=== PATIENT | female | born 1960 | race Caucasian/White ===

== ENCOUNTER 2016-06-26 11:03 | Outpatient (CLI) | payer OTHER ==
[2016-06-26 12:43] LABS: #Basophils 0.1 thou/uL (0.0-0.2); #Eosinphils 0.3 thou/uL (0.0-0.7); #Lymphocytes 3.8 thou/uL (1.20-3.40); #Monocytes 0.5 thou/uL (0.11-0.59); #Neutrophils 5.5 thou/uL (1.40-6.50); %Basophils 1.3 % (0.0-1.0); %Monocytes 5.2 % (0.0-10.0); Hematocrit 44.4 % (36.0-47.0); Mean Platelet Volume 6.1 fL (7.4-10.4); White Blood Cell (WBC) Count 10.3 thou/uL (4.8-10.8)
[2016-06-26 13:04] LABS: ALT (SGPT) 20 U/L (0-55); AST (SGOT) 23 U/L (5-34); Alkaline Phosphatase 99 U/L (40-150); Anion Gap 12 mmol/L (10-20); BUN (Urea Nitrogen) 13 mg/dL (9.8-20.1); Bilirubin, Total 0.5 mg/dL (0.2-1.2); Calc. Creatinine Clearance 0 mL/min (70-130); Calcium 9.4 mg/dL (7.8-10.44); Carbon Dioxide 25 mmol/L (22-29); Chloride 107 mmol/L (98-107); Estimated GFR-MDRD 76; LDL Cholesterol, Calculated 93 mg/dL; Protein, Total 7.2 g/dL (6.0-8.3)
[2016-06-26 13:44] LABS: Bilirubin Negative (Negative); Blood, Urine Negative (Negative); Glucose, Urine (Dipstick) Negative (Negative); Ketone, Urine Trace mg/dL (Negative); Nitrite Negative (Negative); Protein, Urine (Dipstick) Trace mg/dL (Neg-Trace); Urobilinogen 0.2 mg/dL (0.2-1.0)
== END 2016-06-26 11:04 | disposition home or self-care (01) ==
LOC: NAVSJIPCSP 11:03
PROVIDERS: ATTEND Internal Medicine
DX: Z00.00 Encounter for general adult medical examination without abnormal findings (principal)
CPT/HCPCS: 36415; 80053; 80061; 81003; 85025

== ENCOUNTER 2016-06-28 12:51 | Outpatient (CLI) | payer OTHER | END 2016-06-28 12:52 | disposition home or self-care (01) | LOC: NAV LABSP 12:51 | PROVIDERS: ATTEND Internal Medicine | DX: Z00.00 Encounter for general adult medical examination without abnormal findings (principal) | CPT/HCPCS: 82270 ==

== ENCOUNTER 2016-12-26 11:12 | Outpatient (CLI) | payer OTHER ==
--- NOTE | 2016-12-27 07:32 | RAD ---
PA AND LATERAL CHEST: HISTORY: Cough. History of being a smoker. COMPARISON: None. FINDINGS: Heart size is within normal limits. There are radiographic changes of COPD. There are areas of par enchymal change, 1 in the right upper lobe and 1 in the left infrahilar region. The left infrahilar area has a slightly nodular appearance, but on the lateral view may represent some more linear juárez ge, possibly some lingular infiltrate. There is also some linear change extending from the left hil um, probably scar. IMPRESSION: Chronic lung changes with radiographic changes of chronic obstructive pulmonary disease. There are some areas that are potentially acute in nature, 1 area in the right upper lobe and 1 in the left in frahilar region. It is possible that this represents some minimal patchy areas of pneumonitis. Inf rahilar area could potentially represent a nodule but is not definitive. Given that the patient has some acute symptoms with cough, I would recommend a short-term followup after appropriate therapy. If this density does not resolve, then consideration for CT. CODE T POS: [facility]
== END 2016-12-26 11:13 | disposition home or self-care (01) ==
LOC: NAV RAD 11:12
DX: R05 Cough (principal); R50.9 Fever, unspecified; J44.9 Chronic obstructive pulmonary disease, unspecified
CPT/HCPCS: 71020

== ENCOUNTER 2017-01-07 15:10 | Outpatient (CLI) | payer OTHER ==
--- NOTE | 2017-01-07 16:49 | RAD ---
RIGHT HIP TWO VIEWS: History: 8 months of pain. Comparison: None. FINDINGS: Moderate loss of the medial inferior joint space height. Contour of the femoral head is maintained. No fracture. IMPRESSION: Mild degenerative changes of the medial inferior joint space. POS: [facility]
== END 2017-01-07 15:11 | disposition home or self-care (01) ==
LOC: NAV RAD 15:10
PROVIDERS: ATTEND Internal Medicine
DX: M25.551 Pain in right hip (principal); M24.9 Joint derangement, unspecified

== ENCOUNTER 2017-01-23 10:04 | Outpatient (CLI) | payer OTHER ==
[2017-01-23 12:37] LABS: #Basophils 0.1 thou/uL (0.0-0.2); #Eosinphils 0.6 thou/uL (0.0-0.7); #Lymphocytes 2.4 thou/uL (1.20-3.40); #Monocytes 0.4 thou/uL (0.11-0.59); #Neutrophils 6.5 thou/uL (1.40-6.50); %Eosinophils 5.7 % (0.0-10.0); %Monocytes 4.2 % (0.0-10.0); %Neutrophils 65.1 % (42.0-75.0); Hemoglobin 13.2 g/dL (12.0-16.0); Mean Corpuscular Hemoglobin 28.6 pg (27.0-31.0); Mean Corpuscular Volume 92.1 fl (81.0-99.0); Mean Platelet Volume 6.2 fL (7.4-10.4); Platelet Count 560 thou/uL (130-400); RBC Distribution Width 14.1 % (11.5-14.5); Red Blood Cell (RBC) Count 4.62 mill/uL (4.20-5.40)
[2017-01-23 12:56] LABS: ALT (SGPT) 13 U/L (8-55); AST (SGOT) 20 U/L (5-34); Alkaline Phosphatase 88 U/L (40-150); Anion Gap 14 mmol/L (10-20); BUN (Urea Nitrogen) 17 mg/dL (9.8-20.1); Bilirubin, Total 0.3 mg/dL (0.2-1.2); Calc. Creatinine Clearance 0 mL/min (70-130); Calcium 9.3 mg/dL (7.8-10.44); Carbon Dioxide 27 mmol/L (22-29); Chloride 105 mmol/L (98-107); Estimated GFR-MDRD 77; Globulin 2.3 g/dL (2.4-3.5); Glucose 100 mg/dL (70-105); Potassium 4.7 mmol/L (3.5-5.1); Protein, Total 6.3 g/dL (6.0-8.3); Sodium 141 mmol/L (136-145)
== END 2017-01-23 10:05 | disposition home or self-care (01) ==
LOC: NAVSJIPCSP 10:04
DX: I11.9 Hypertensive heart disease without heart failure (principal)
CPT/HCPCS: 36415; 80053; 85025

== ENCOUNTER 2017-01-24 10:49 | Outpatient (CLI) | payer OTHER ==
--- NOTE | 2017-01-24 11:59 | RAD ---
1234 PA AND LATERAL VIEWS CHEST: HISTORY: Pneumonia. FINDINGS: Comparison is made with the exam of 12/26/16. The heart size is normal. The lungs are expanded without confluent areas of consolidation, pneumoth orax, or pleural effusions. IMPRESSION: No radiographic evidence of acute cardiopulmonary process. POS: [facility]
== END 2017-01-24 10:50 | disposition home or self-care (01) ==
LOC: NAV RAD 10:49
DX: J18.9 Pneumonia, unspecified organism (principal)
CPT/HCPCS: 71020

== ENCOUNTER 2017-02-28 10:32 | Outpatient (CLI) | payer OTHER ==
[2017-02-28 12:22] LABS: #Basophils 0.1 thou/uL (0.0-0.2); #Eosinphils 0.5 thou/uL (0.0-0.7); #Lymphocytes 3.6 thou/uL (1.20-3.40); #Monocytes 0.6 thou/uL (0.11-0.59); #Neutrophils 5.3 thou/uL (1.40-6.50); %Basophils 1.1 % (0.0-1.0); %Eosinophils 4.7 % (0.0-10.0); %Lymphocytes 35.6 % (21.0-51.0); %Monocytes 5.8 % (0.0-10.0); %Neutrophils 52.8 % (42.0-75.0); Hemoglobin 13.2 g/dL (12.0-16.0); Mean Corpuscular HGB CONC 32.7 g/dL (32.0-36.0); Mean Corpuscular Hemoglobin 29.4 pg (27.0-31.0); Platelet Count 473 thou/uL (130-400); RBC Distribution Width 14.7 % (11.5-14.5); Red Blood Cell (RBC) Count 4.49 mill/uL (4.20-5.40)
== END 2017-02-28 10:33 | disposition home or self-care (01) ==
LOC: NAVSJIPCSP 10:32
DX: D47.3 Essential (hemorrhagic) thrombocythemia (principal)
CPT/HCPCS: 36415; 82607; 83615; 85025

== ENCOUNTER 2019-06-22 13:07 | Outpatient (CLI) | payer OTHER | END 2019-06-22 13:08 | disposition home or self-care (01) | LOC: NAV EKG 13:07 | PROVIDERS: ATTEND Internal Medicine | DX: R00.0 Tachycardia, unspecified (principal); R00.2 Palpitations; R94.31 Abnormal electrocardiogram [ECG] [EKG] | CPT/HCPCS: 93005; 93010 ==

== ENCOUNTER 2019-10-26 07:28 | Outpatient (CLI) | payer OTHER ==
--- NOTE | 2019-10-26 08:13 | RAD ---
RADIOGRAPH CERVICAL SPINE 3 VIEWS: DATE: 10/26/2019 HISTORY: 59-year-old female with cervicalgia COMPARISON: 07/29/2019 FINDINGS: Anterior metallic plate and screws at all levels from C3 through C7. Metallic markers for interbody c ages at all levels from C3-4 through C6-7. Unilateral right-sided posterior element screws with vertical interlocking rods at all levels from C3 through C7. Mild grade 1 anterolisthesis of C7 on T1 . Vertebral body heights are maintained. Laminectomy defects from C2-3 through C7-T1. No interval change overall. IMPRESSION: Status post anterior cervical discectomy and fusion, laminectomies, and unilateral right posterior el ement screws, throughout almost entire cervical spine. No interval change.
== END 2019-10-26 07:29 | disposition home or self-care (01) ==
LOC: NAV RAD 07:28
PROVIDERS: ATTEND Neurological Surgery
DX: M54.2 Cervicalgia (principal); Z98.1 Arthrodesis status
CPT/HCPCS: 72040

== ENCOUNTER 2020-02-22 13:08 | Outpatient (CLI) | payer OTHER ==
--- NOTE | 2020-02-22 13:33 | RAD ---
XR Hip Rt 2-3 View HISTORY: Right hip pain COMPARISON: 01/07/2017 FINDINGS: Mild degenerative changes are again seen. No acute fracture, dislocation or bony destruction is seen. IMPRESSION: Mild right hip osteoarthritis.
== END 2020-02-22 13:09 | disposition home or self-care (01) ==
LOC: NAV RAD 13:08
PROVIDERS: ATTEND Internal Medicine
DX: M25.551 Pain in right hip (principal); M16.11 Unilateral primary osteoarthritis, right hip

== ENCOUNTER 2020-10-19 10:25 | Emergency (ER) | payer OTHER | END 2020-10-19 12:06 | disposition home or self-care (01) | LOC: NAV ERS 10:25 | DX: M79.671 Pain in right foot (principal); I10 Essential (primary) hypertension; J44.9 Chronic obstructive pulmonary disease, unspecified; F17.210 Nicotine dependence, cigarettes, uncomplicated; Z79.01 Long term (current) use of anticoagulants; Z79.899 Other long term (current) drug therapy ==